=== PATIENT | female | born 1960 | race Asian ===

== ENCOUNTER 2018-08-25 14:55 | Emergency (ER) | payer OTHER ==
[~2018-08-25] VITALS: Ht 152.4 cm; Wt 52.3 kg
[2018-08-25 15:04] VITALS: Ht 152.4 cm; Wt 52.3 kg
[2018-08-25] MEDS ORDERED: LEVO25TA6 PO (17:12)
[2018-08-25] MEDS ORDERED: SOD CHLORIDE 0.9% 100 ML ONE (18:48)
[2018-08-25] MEDS ORDERED: IOHEXOL 100 ML ONE (18:48)
[2018-08-25] MEDS ORDERED: PANT40TA3 PO (19:44)
--- NOTE | 2018-08-25 19:44 | ERD ---
ER Documentation Chief Complaint Chief Complaint epigastric, bilateral CP X 1 hr HPI 58-year-old female presents the emergency department complaining of an epigastric and chest pain for approximately 1 hour. Patient was in her usual state of health until approximately an hour ago which time she had a non-provoked episode of an epigastric discomfort which radiated to her chest. It radiated towards the left part of her chest. It was associated with a brief episode of shortness of breath. It was nonexertional, non-positional and associated with no fevers, chills, cough or hemoptysis. Patient has never had similar type pain before. Currently, patient reports that the pain is now gone. ROS All systems reviewed and are negative except as per history of present illness. Medications Home Meds Reported Medications Levothyroxine Sodium* (Levothyroxine Sodium*) 25 Mcg Tablet, 25 MCG PO BEFORE BREAKFAST, #30 TAB 08/25/18 Allergies Allergies: Coded Allergies: No Known Allergy (Unverified , 08/25/18) PMhx/Soc Hx Miscellaneous Medical Probl: Yes (HYPOTHYROIDISM) Hx Alcohol Use: No Hx Substance Use: No Hx Tobacco Use: No Smoking Status: Never smoker FmHx No history of either heart disease or pulmonary embolism in her family Physical Exam Vitals Vital Signs Date Temp Pulse Resp B/P (MAP) Pulse Ox O2 O2 Flow FiO2 Time Delivery Rate 08/25/18 68 20 113/81 Room Air 17:25 (92) 08/25/18 98.1 67 18 118/68 99 15:04 (85) Physical Exam GENERAL: The patient is well developed and appropriate for usual state of health in no apparent distress HEENT: Pupils equal, round, and reactive to light. EOMI. There is no scleral icterus. NECK: C-spine is soft and supple, there is no meningismus. There is no cervical lymphadenopathy. LUNGS: Clear to auscultation bilaterally. There are no rales, wheezes or rhonchi. HEART: Regular rate and rhythm, no murmurs, clicks, rubs or gallops. ABDOMEN: Soft, non-tender, non-distended. There are bowel sounds in all four quadrants. No rebound or guarding. EXTREMITIES: There is no peripheral cyanosis or edema. No focal swelling or erythema. NEURO: The patient moves all four extremities with 5/5 strength. Cranial nerves II - XII are intact. Normal gait. Alert and oriented SKIN: There is no apparent rash or petechiae. HEME/LYMPHATIC: There is no evidence of excessive bruising or lymphedema. PSYCHIATRIC: The patient does not appear anxious or depressed. Result Diagram: 08/25/18 1650 08/25/18 1650 Results 24 hrs Laboratory Tests Test 08/25/18 16:50 White Blood Count 8.1 10^3/ul Red Blood Count 4.45 10^6/ul Hemoglobin 13.5 g/dl Hematocrit 38.0 % Mean Corpuscular Volume 85.4 fl Mean Corpuscular Hemoglobin 30.3 pg Mean Corpuscular Hemoglobin Concent 35.5 g/dl Red Cell Distribution Width 15.2 % Platelet Count 296 10^3/UL Mean Platelet Volume 9.0 fl Immature Granulocytes % 0.200 % Neutrophils % 63.2 % Lymphocytes % 26.3 % Monocytes % 8.2 % Eosinophils % 1.4 % Basophils % 0.7 % Nucleated Red Blood Cells % 0.0 /100WBC Immature Granulocytes # 0.020 10^3/ul Neutrophils # 5.1 10^3/ul Lymphocytes # 2.1 10^3/ul Monocytes # 0.7 10^3/ul Eosinophils # 0.1 10^3/ul Basophils # 0.1 10^3/ul Nucleated Red Blood Cells # 0.0 10^3/ul D-Dimer 1560.99 ng/ml D-Dimer Comment Sodium Level 143 mmol/L Potassium Level 4.0 mmol/L Chloride Level 103 mmol/L Carbon Dioxide Level 30 mmol/L Anion Gap 10 Blood Urea Nitrogen 14 mg/dl Creatinine 0.70 mg/dl Est Glomerular Filtrat Rate mL/min > 60 mL/min Glucose Level 94 mg/dl Calcium Level 10.2 mg/dl Total Bilirubin 0.3 mg/dl Direct Bilirubin 0.00 mg/dl Indirect Bilirubin 0.3 mg/dl Aspartate Amino Transf (AST/SGOT) 23 IU/L Alanine Aminotransferase (ALT/SGPT) 26 IU/L Alkaline Phosphatase 94 IU/L Troponin I < 0.012 ng/ml Total Protein 7.5 g/dl Albumin 4.6 g/dl Globulin 2.90 g/dl Albumin/Globulin Ratio 1.58 Lipase 98 U/L Current Medications Medications Dose Sig/Joe Start Time Status Last (Trade) Ordered Route PRN Stop Time Admin Dose Reason Admin IV Flush 10 ml STK-MED 08/25/18 DC (NS 10 ml) ONCE .ROUTE 18:48 08/25/18 18:49 Sodium 100 ml @ ud STK-MED 08/25/18 DC Chloride ONCE .ROUTE 18:48 08/25/18 18:49 Iohexol 100 ml @ ud STK-MED 08/25/18 DC ONCE .ROUTE 18:48 08/25/18 18:49 Procedures/MDM Patient was taken to a room, seen and evaluated. Comfort measures were in itiated. Diagnostic tests were ordered and reviewed. 3 LEAD RHYTHM STRIP: Normal sinus rhythm without ectopy EK lead EKG reviewed by myself: Normal Sinus Rhythm Normal [place] and intervals No ST elevation, depression, or T wave inversion Impression: Normal EKG Repeat EK lead EKG reviewed by myself: Normal Sinus Rhythm Normal [place] and intervals No ST elevation, depression, or T wave inversion Impression: Normal EKG RADIOLOGY: Reviewed with the radiologist REEVALUATION: 1940: Diagnostic tests were appreciated and patient remained nontoxic appearing. Diagnostic tests were discussed with her and she stated she had good outpatient follow-up. MEDICAL DECISION MAKING: Patient presents with chest pain of uncertain etiology. Differential diagnosis considered includes acute myocardial infarction, pulmonary embolism, as well as vascular and pulmonary concerns. I have reviewed the patients clinical risk factors, EKG, lab studies and imaging. Patient has a low risk PERC score, but had a positive d-dimer, for which I followed up with a CT scan that was negative for pulmonary embolism or other thoracic concerns. Patient has a low risk heart score with a negative troponin and 2 normal EKGs making her very low risk for this being significantly cardiac in etiology. Patient has good outpatient follow-up and states she has appropriate follow-up with her doctor tomorrow. At this time, my suspicion of this is likely GI in etiology and she will be recommended to PPI Departure Diagnosis: Primary Impression: Chest pain Condition: Stable Patient Instructions: Chest Pain, Uncertain Cause Additional Instructions: See your doctor for follow-up as discussed. Take a copy of your test results, if appropriate, to this follow-up visit. See your doctor or return here if your symptoms do not improve as expected. At any time, please return to the emergency department for any change or worsening in her symptoms. CHERI PADILLA Aug 25, 2018 19:44
[2018-08-25 20:02] VITALS: BP 119/58; PULSE 76; RESP 19
--- NOTE | 2018-08-25 20:08 | NUR ---
Procedure Ordered:CTA CHEST ANGIO Reason for Exam Today: Previous Exams: Allergies:NKDA Current Medications Taken: Glucophage ( ) Metformin ( ) Previous reaction to contrast media: Yes ( ) No ( ) : Yes ( ) No ( X) Asthma: Yes ( ) No (X ) Diabetes: Yes ( ) No ( X) Myeloma: Yes ( ) No (X ) Heart Disease: Yes ( ) No (X ) Cardiac Disease: Yes ( ) No (X) Kidney Disease: Yes ( ) No (X ) Vascular Disease: Yes ( ) No ( X) Patient Teaching done: Yes ( X) No ( ) Physiatrist Used: Yes ( ) No (X ) Name of Physiatrist: Language Used: As part of the test requested by your doctor, contrast media may be injected into your vein while the x-rays are being taken. Occasionally, reactions from IV contrast may occur. The physician and staff of this hospital are trained to treat these reactions. Select the type of Contrast that will be given to patient: Isovue 300 ( ) Isovue 370 ( ) Visipaque ( ) Cystografin ( ) Gastrographin ( ) Redi-cat ( ) Volumen ( ) [id number](X) Amount of contrast to be given: 90CC IV ( X) PO ( ) Date given:08/25/18 Lab Values: BUN: 14 Creatinine:0.70 Reason why contrast cannot be given: Location of patient pre-procedure:[facility] 12 Location of patient post procedure:[facility] 12
== END 2018-08-25 20:02 | disposition home or self-care (01) ==
LOC: E/R 14:55
DX: R07.9 Chest pain, unspecified (principal); E03.9 Hypothyroidism, unspecified
CPT/HCPCS: 36415; 71045; 71275; 80053; 83690; 84484; 85025; 85378; 93005; 99285; Q9967